=== PATIENT | male | born 2005 | race African-American/Black ===

== ENCOUNTER 2025-05-10 12:40 | Outpatient (CLI) | payer OTHER, SELFPAY ==
[2025-05-10 23:34] LABS: GC DNA Amplified* NOT DETECTED (No Detected)
[2025-05-11 00:29] LABS: Chlamydia DNA Amplified* DETECTED (No Detected)
== END 2025-05-10 12:41 | disposition home or self-care (01) ==
DX: R30.0 Dysuria (principal); Z11.4 Encounter for screening for human immunodeficiency virus [HIV]
CPT/HCPCS: 86592; 86703; 87491; 87591